=== PATIENT | female | born 1990 | race Caucasian/White ===

== ENCOUNTER → 2023-09-27 | Outpatient (CLI) | payer BC ==
--- NOTE | 2023-09-27 17:54 | CA ---
Transthoracic Echo Report Name: Airam Jordan Age: 33 Gender: F : 1990 Exam Date: 09/27/2023 16:26 Exam Location: [facility] Ht (in): 62 Wt (lb): 145 Ordering Physician: Wilmer Bedoya MD Attending/Referring Phys: Service Unit Operator Shaneka Thompson RDCS Procedure CPT: Indications: I34.0 NONRHEUMATIC MITRAL (VALVE) INSUFFICIENCY Cardiac Hx: Technical Quality: Fair Contrast 1: Total Dose (mL): Contrast 2: Total Dose (mL): MEASUREMENTS (Male / Female) Normal Values 2D ECHO LV Diastolic Diameter PLAX 4.8 cm 4.2 - 5.9 / 3.9 - 5.3 cm LV Systolic Diameter PLAX 3.2 cm IVS Diastolic Thickness 0.7 cm 0.6 - 1.0 / 0.6 - 0.9 cm LVPW Diastolic Thickness 0.9 cm 0.6 - 1.0 / 0.6 - 0.9 cm LV Relative Wall Thickness 0.3 RV Internal Dim ED PLAX 2.3 cm LVOT Diameter 1.9 cm LV Diastolic Volume MOD BP 98.0 cm??? 67 - 155 / 56 - 104 cm??? LV Systolic Volume MOD BP 41.0 cm??? 22 - 58 / 19 - 49 cm??? LV Ejection Fraction MOD BP 58.2 % >= 55 % LV Cardiac Index MOD BP 2830.7 cm???/min???m??? LV Diastolic Volume MOD 4C 93.3 cm??? LV Systolic Volume MOD 4C 40.0 cm??? LV Ejection Fraction MOD 4C 57.1 % LV Cardiac Index MOD 4C 2642.3 cm???/min???m??? LV Diastolic Length 4C 9.3 cm LV Systolic Length 4C 7.9 cm LV Diastolic Volume MOD 2C 103.5 cm??? LV Systolic Volume MOD 2C 41.0 cm??? LV Ejection Fraction MOD 2C 60.4 % LV Cardiac Index MOD 2C 3101.2 cm???/min???m??? LV Diastolic Length 2C 9.2 cm LV Systolic Length 2C 7.7 cm LA Volume 36.5 cm??? 18 - 58 / 22 - 52 cm??? LA Volume Index 21.3 cm???/m??? 16 - 28 cm???/m??? Ascending Aorta Diameter 3.1 cm DOPPLER AV Peak Velocity 147.7 cm/s AV Peak Gradient 8.7 mmHg AV Mean Velocity 103.0 cm/s AV Mean Gradient 4.8 mmHg AV Velocity Time Integral 28.6 cm LVOT Peak Velocity 132.5 cm/s LVOT Peak Gradient 7.0 mmHg LVOT Velocity Time Integral 22.5 cm LVOT Stroke Volume 64.5 cm??? LVOT Stroke Volume Index 38.7 ml/m??? LVOT Cardiac Index 3200.3 cm???/min???m??? AV Area Cont Eq vti 2.3 cm??? AV Area Cont Eq pk 2.6 cm??? MV Area PHT 3.8 cm??? Mitral E Point Velocity 75.1 cm/s Mitral A Point Velocity 69.0 cm/s Mitral E to A Ratio 1.1 MV Deceleration Time 197.6 ms TR Peak Velocity 227.7 cm/s TR Peak Gradient 20.7 mmHg Right Atrial Pressure 5.0 mmHg Pulmonary Artery Systolic Pressu 25.7 mmHg Right Ventricular Systolic Press 25.7 mmHg PV Peak Velocity 81.8 cm/s PV Peak Gradient 2.7 mmHg FINDINGS Left Ventricle Left ventricular ejection fraction is estimated at 55-60 %. Left ventricular cavity size normal. Left ventricular wall thickness normal. No obvious regional wall motion abnormalities. Right Ventricle Normal right ventricular size and function. Right ventricular systolic pressure within normal limits. Right Atrium Normal right atrial size. Left Atrium Normal left atrial size. Mitral Valve Structurally normal mitral valve. No mitral stenosis, regurgitation or prolapse. Aortic Valve Trileaflet aortic valve. No aortic stenosis. Trace aortic regurgitation. Tricuspid Valve Structurally normal tricuspid valve. No tricuspid stenosis. Trace tricuspid regurgitation. Pulmonic Valve Structurally normal pulmonic valve. No pulmonic stenosis. No pulmonic regurgitation. Pericardium No pericardial effusion. Aorta Normal size aortic root and proximal ascending aorta. CONCLUSIONS Normal LV size and function Previewed by: Dr. Dustin King MD (Electronically Signed) Final Date: 27 September 2023 17:53
== END | disposition home or self-care (01) ==
LOC: RADECHMAIN 16:25
PROVIDERS: ATTEND Internal Medicine
DX: I34.0 Nonrheumatic mitral (valve) insufficiency (principal)
CPT/HCPCS: 93306